=== PATIENT | female | born 1975 | race Caucasian/White ===

== ENCOUNTER → 2016-07-26 20:33 | Outpatient (CLI) | payer BC ==
[2012-02-05 12:59] VITALS: BMI 29.0
== END | disposition home or self-care (01) ==
LOC: D.LABREF 20:33
DX: R31.9 Hematuria, unspecified (principal)

== ENCOUNTER → 2016-08-16 09:17 | Outpatient (CLI) | payer BC ==
[2012-02-05 12:59] VITALS: BMI 29.0
== END | disposition home or self-care (01) ==
LOC: D.CT 09:00
DX: R31.21 Asymptomatic microscopic hematuria (principal)